=== PATIENT | male | born 1985 | race Two or more races ===

== ENCOUNTER → 2016-09-13 | Outpatient (CLI) | payer OTHER ==
--- NOTE | 2016-09-13 23:14 | MR ---
EXAMINATION TYPE: MR shoulder LT wo con DATE OF EXAM: 09/13/2016 9:15 PM COMPARISON: NONE HISTORY: Left Shoulder Pain with Limited ROM, for 2 days. Strained arm injury. TECHNIQUE: Multiplanar, multisequence imaging of the left shoulder is performed without contrast. FINDINGS: Rotator Cuff: Supraspinatus and infraspinatus tendons are grossly intact. There is no suspicious incr eased signal or partial tear identified. No full-thickness retracted tear is seen. Rotator cuff muscl e bulk is preserved. Subscapularis tendon is intact. Acromioclavicular Joint: There is some joint space loss and mild spurring at acromioclavicular joint. Some increased signal in the joint space could reflect inflammatory change. Inferior fat plane is ma intained. Distal acromion morphology is unremarkable. Glenohumeral Joint: Small glenohumeral joint effusion is seen. Some joint space loss is present. Tiny spur is seen inferior medial humeral head on coronal image 15. Labrum: There is suspicious Y shaped increased signal involving anterior labrum on axial image 16 wor risome for tear. Biceps Tendon: The long head of biceps is in normal location within bicipital groove. Bone marrow signal: No focal abnormal marrow signal is appreciated. Other: No additional significant abnormality is appreciated. IMPRESSION: No rotator cuff tear identified. Tear involving the anterior portion of labrum suspected. Probable mild to moderate AC joint inflammation.
== END | disposition home or self-care (01) ==
LOC: RADMRIMAIN 20:40
PROVIDERS: ATTEND Physician Assistant Medical
DX: S46.912A Strain of unspecified muscle, fascia and tendon at shoulder and upper arm level, left arm, initial encounter (principal); M24.112 Other articular cartilage disorders, left shoulder